=== PATIENT | female | born 1995 | race Caucasian/White ===

== ENCOUNTER 2019-05-26 13:42 | Emergency (ER) | payer BC, SELFPAY ==
--- NOTE | 2019-05-26 13:49 | ED.URI ---
HPI - URI/Sore Throat General Chief Complaint: Upper Respiratory Infection Stated Complaint: cough/congestion Time Seen by Provider: 05/26/19 13:49 Source: patient and RN notes reviewed History of Present Illness HPI Narrative: Patient is a 23-year-old female that presents the urgent care with complaints of congestion and cough. Patient states she has had a chronic dry cough since March and is never followed up for her symptoms. Patient states that she was using Claritin and Zyrtec but does not seem to help. Patient denies any known fever, nausea, vomiting. Patient states that now she is having chest congestion and sometimes intermittent shortness of breath. Denies of any wheezing. No other acute complaints. No acute distress noted. Patient had a plan of care. Related Data Allergies Allergy/AdvReac Type Severity Reaction Status Date / Time No Known Allergies Allergy Verified 05/29/13 17:18 Review of Systems Review of Systems: Narrative: CONSTITUTIONAL: Denies fever, chills, or sweats. EYES: Denies visual changes, redness, or discharge. ENT: Denies rhinorrhea, congestion, sore throat, or otalgia. CARDIOVASCULAR: Denies chest pain, palpitations, or edema. RESPIRATORY: Reports of dry cough with intermittent dyspnea GASTROINTESTINAL: Denies abdominal pain, nausea, vomiting, or diarrhea. GENITOURINARY: Denies dysuria or hematuria. SKIN: Denies rash or itching. MUSCULOSKELETAL: Denies back pain, joint pain, or myalgia. NEUROLOGIC: Denies headache, numbness, or weakness. All other systems reviewed are negative, except as documented in HPI. PMFSH Comments At the time of my signature, I reviewed and agree with the nursing past medical, surgical, social, and family history. There is no relevant family history pertinent to the patient complaint. Exam Narrative: Exam Narrative: GENERAL: This is a well-nourished, well-developed patient, in no apparent distress. HEAD: normocephalic, atraumatic. EYES: PERRL. Sclera clear/white. Vision is grossly intact. EARS: External ears normal, auditory canals clear and without drainage, TMs normal without perforation. Hearing grossly intact. NOSE: External nose normal with no obvious nasal discharge, nares without redness, no rhinorrhea. THROAT: Mucous membranes moist, mild erythema to the posterior oropharynx with mild postnasal drainage NECK: Neck supple CARDIOVASCULAR: Regular rate and rhythm without murmurs, gallops, or rubs. RESPIRATORY: Clear to auscultation. Breath sounds equal bilaterally. No wheezes, rales, or rhonchi. SKIN: warm, intact with no suspicious lesions or rash, good texture and turgor. NEURO: awake, alert, and oriented to person, place and time. There were no obvious focal neurologic abnormalities. EXTREMITIES: No clubbing, cyanosis, or edema. Course Vital Signs Vital signs: Vital Signs Temperature 97.5 F L 05/26/19 13:55 Pulse Rate 81 05/26/19 13:55 Respiratory Rate 16 05/26/19 13:55 Blood Pressure 133/89 05/26/19 13:55 Pulse Oximetry 99 05/26/19 13:55 Temperature 97.5 F L 05/26/19 13:55 Pulse Rate 81 05/26/19 13:59 Respiratory Rate 16 05/26/19 13:59 Blood Pressure 133/89 05/26/19 13:55 Pulse Oximetry 99 05/26/19 13:59 Reviewed MDM - URI/Sore Throat MDM Narrative Medical decision making narrative: Advised the patient to complete steroid regimen as prescribed. Continue taking Claritin in conjunction with Flonase nasal spray while on the steroid and for 2 weeks after. Increase fluids and rest. Use humidifier at night. If you develop any increase in symptoms associated with persistent shortness of breath, wheezing, fever?go to the emergency room. Follow-up with PCP within 2 to 5 days or for worsening symptoms or failure to improve. Differential Diagnosis Differential diagnosis: Likely upper respiratory infection, otitis media, sinusitis, bronchitis, influenza and pharyngitis Critical Care Time Critical Care Time Critical Care Time:
[2019-05-26 13:55] VITALS: BP 133/89; PULSE 81; RESP 16; TEMP 36.4; O2SAT 99
[2019-05-26 13:59] VITALS: PULSE 81; RESP 16; O2SAT 99
== END 2019-05-26 14:25 | disposition home or self-care (01) ==
PROVIDERS: Emergency Provider Nurse Practitioner Family; PCP Internal Medicine
DX: J32.9 Chronic sinusitis, unspecified (principal); M19.90 Unspecified osteoarthritis, unspecified site
CPT/HCPCS: 99203; G0463

== ENCOUNTER 2024-08-28 12:44 | Outpatient (CLI) | payer OTHER, SELFPAY ==
--- OUTSIDE RECORDS SUMMARY | 2024-08-28 14:13 | XMS_ITS | CONTINUITY OF CARE DOCUMENT ---
Author Name ron velasquez Address Unknown Organization [facility] Address [address] [place] [address] [address], [place] [address] Phone [phone] Care Team Providers Care Sign Language Interpreter Name Role Phone Dennis Lomeli DO Unavailable DELGADO HEARN MD Unavailable [phone] INSURANCE PROVIDERS Payer name Policy type / Coverage type Geremias red alliance party ID [employer] insurance [id number]
--- OUTSIDE RECORDS SUMMARY | 2024-08-28 14:13 | XMS_ITS | Clinical Summary ---
Author Organization [facility] Virtual Care Address [address] [place] [phone] Phone Care Team Providers Care Roll Filler Name Role Phone Russell Dimas MD Primary Care Provider [phone] Allergies No known active allergies Medications benzonatate (TESSALON) 200 mg capsuleIndicati ons:Subacute cough Take 1 capsule (200 mg total) by mouth 3 (three) times a day as needed for cough keep tessalon out of reach of children, especially children under the age of 10, due to possible serious risk such as if ingested by children under the age of 10. 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 Gender Identity Not on file Sexual Orientation Not on file Obstetrics History Last Filed Vital Signs Vital Sign Reading Time Taken Comments Blood Pressure 131/88 09/18/2023 9:28 AM CDT Pulse 87 09/18/2023 9:28 AM CDT Temperature 36.6 C (97.9 F) 09/18/2023 9:28 AM CDT Respiratory Rate 20 09/18/2023 9:28 AM CDT Oxygen Saturation 97% 09/18/2023 9:28 AM CDT Inhaled Oxygen Concentration - - Weight 128 kg (282 lb 3.2 oz) 09/18/2023 9:28 AM CDT Height 170.2 cm (5' 7) 09/18/2023 9:28 AM CDT Body Mass Index 44.2 09/18/2023 9:28 AM CDT Plan of Treatment Health Maintenance Due Date Last Done Comments Cervical Cancer Screening 1993 Depression Screening 1993 Hepatitis C Screening 1993 Regular Well Visit/Exam 18-64 09/24/2011 DTaP/Tdap/Td Vaccine (8 - Td or Tdap) 04/01/2023 04/01/2013, 12/13/2006, 08/04/1998, Additional history exists Covid-19 Vaccine ( season) 2023 11/09/2020, 10/22/2020 Influenza Vaccine (Season Ended) 2024 01/27/2020, 12/20/2017, 06/11/2014, Additional history exists Hepatitis B Screening Completed 09/27/1994 , 1993, 1993 Varicella Vaccines Completed 12/13/2006, 12/27/1994 HPV Vaccines Aged Out No longer eligi ble based on patient's age to complete this topic Pneumococcal vaccine <65 Aged Out No longer eligible based on patient's age to complete this topic Insurance Care Teams Roll Filler Relationship Specialty Start Date End Date Russell Dimas MD PCP - General Internal Medicine 06/14/23
--- OUTSIDE RECORDS SUMMARY | 2024-08-28 14:13 | XMS_ITS | Clinical Summary ---
Author Organization [facility] [employer] Address [address] [address] Care Team Providers Care It Business Analyst Name Role Phone Russell Dimas MD Primary Care Provider [phone] Source Comments [facility] [employer],non-owned Affiliates and Associated Physician Practices is amultiple site organization consisting of ambulatory clinics and hospital sitesin [place], [place], [place] and [place]. This disclosure is being madepursuant to the Care Everywhere program and may not contain all information available regarding this patient. Last updated 17.[facility] [employer] Allergies No known active allergies Medications * Be aware that medications may not be up to date on this document. Alwaysverify current medications with the patient. ipratropium (Atrovent) 0.06 % nasal spray [place] 2 (two) sprays into each nostril 3 times daily as needed (allergies) Active diphenhydrAMINE (Benadryl) 25 MG capsule Take 1 (one) capsule by mouth every 4 hours as needed for Itching (allergies) Active Vit-Fe Fumarate-FA ( VITAMINS PO) Take 1 tablet by mouth once daily Active Active Problems Problem Noted Date Diagnosed Date Annual physical exam - [facility] 08/21/2023 Closed boxer's fracture - right hand 03/2013 s/p sx 03/13/2013 Allergies Overview (03/19/2024): Seasonal and perennial - hx SKT and RAST test, no hx allergy shots Rheumatoid arthritis Overview (03/19/2024): Tylenol PRN, no hx other rx Resolved Problems Problem Noted Date Diagnosed Date Resolved Date Annual physical exam 08/21/2023 024 Encounters Date Type Department Care Team Description 08/15/2024 Results Follow-Up [address], [address] [address] Marianne Kessler MD 08/14/2024 Orders Only [address], [address] [address] Marianne Kessler MD Annual physical exam - [facility] from Last 3 Months Immunizations Immunization Administration Dates Next Due DTaP VACCINE IM (6wk-6yrs) 08/04/1998,,03/29/1994,1993,1993 HEP A PEDS 2 DOSE 10/05/2007,12/13/2006 HEP A VACCINE, ADULT 05/01/2012 HEP B VACCINE, PED/ADOL 09/27/1994,1993, HIB-PRP-OMP 3 DOSE 12/27/1994, 5,01/25/1994,1993 INFLUENZA VACCINE, CELL CULT URE, QUADR. (FLUCELVAX QUADRIVALENT; 6MO+), 0.5 ML (CCIIV4) 01/27/2020 INFLUENZA VACCINE, HIGH-DOSE , TRIV. (FLUZONE HIGH-DOSE TRIVALENT; 65Y+) (HD-IIV3) 06/11/2014 INFLUENZA VACCINE, QUADR. (A FLURIA, FLUZONE QUADRIVALENT; 6MO+) (IIV4) 12/20/2017 INFLUENZA VACCINE, QUADR. (F LUZONE; FLULAVAL; FLUARIX; AFLURIA QUADRIVALENT; 6MO+), 0.5 ML (IIV4) 01/11/2023 INFLUENZA VACCINE, TRIV. (FL UZONE; FLULAVAL; FLUARIX; AFLURIA TRIVALENT; 6MO+), 0.5 ML (IIV3) 01/11/2024,02/01/2013 MMR VACCINE 08/04/1998,09/27/1994 POLIO OPV 08/04/1998, 5,01/25/1994,1993 TDAP, HISTORIC VACCINE 04/01/2013,12/13/2006 VARICELLA 12/13/2006,12/27/1994 Family History Medical History Relation Name Comments Diabetes - Type 2 Brother Hypertension Brother Hypertension Father None Known Maternal Grandfather mother is adopted None Known Maternal Grandmother mother is adopted Asthma Mother Bipolar Disorder Mother COPD - Chronic Obstructive P ulmonary Disease Mother Diabetes - Type 2 Mother Hypertension Mother CAD (Coronary Artery Disease) Paternal Grandfather Other - Hematologic Paternal Grandmother Multiple myeloma Anxiety Disorder Sister Depression Sister Relation Name Status Comments Brother Alive Father Alive Maternal Grandfather Maternal Grandmother Mother Alive Paternal Grandfather Paternal Grandmother Sister Alive half-brother Alive Social History Tobacco Use Types Packs/Day Years Used Date Smoking Tobacco: Former Cigarettes 0.5 10 2 2020 Smokeless Tobacco: Never Tobacco Cessation:Counseling Given: Yes Comments:5 pk-yr hx, quit 2020 Comments Unknown Sex and Gender Information Value Date Recorded Sex Assigned at Not on file Legal Sex Female 3:16 PM CDT Gender Identity Not on file Sexual Orientation Not on file Last Filed Vital Signs Vital Sign Reading Time Taken Comments Blood Pressure 112/64 03/19/2024 8:21 AM CORONER'S JUROR Pulse 88 03/19/2024 8:21 AM CORONER'S JUROR Temperature - - Respiratory Rate 16 03/19/2024 8:21 AM CORONER'S JUROR Oxygen Saturation 99% 03/19/2024 8:21 AM CORONER'S JUROR Inhaled Oxygen Concentration - - Weight 118.3 kg (260 lb 12.8 oz) 03/19/2024 8:21 AM CORONER'S JUROR Height 168.3 cm (5' 6.25) 03/19/2024 8:21 AM CS T Body Mass Index 41.78 03/19/2024 8:21 AM CORONER'S JUROR Plan of Treatment Health Maintenance Due Date Last Done Comments HIV SCREENING 2008 HEPATITIS C SCREENING 09/19/2011 DTAP/TDAP/TD VACCINES (8 - Td or Tdap) 04/01/2023 04/01/2013, 12/13/2006, 08/04/1998, Additional history exists COVID-19 VACCINE ( season) 2023 11/09/2020, 10/22/2020 DEPRESSION SCREENING 03/13/2024 PAP SMEAR 12/28/2025 12/28/2022 ZOSTER VACCINE (1 of 2) 09/24/2043 HEPATITIS B VACCINE Completed 09/27/1994, 1993, 1993 HIB VACCINE Completed 12/27/1994, 03/13, 01/25/1994, Additional history exists INFLUENZA VACCINE Completed 01/11/2024, , 01/27/2020, Additional history exists HPV VACCINE Aged Out No longer eligi ble based on patient's age to complete this topic MENINGOCOCCAL (Group B) VACCINE SHARED DECISION-MAKING Aged Out No longer eligible based on patient's age to complete this topic MENINGOCOCCAL GROUPS A/C/Y/W VACCINE Aged Out No longer eligible based on patient's age to complete this topic PNEUMOCOCCAL VACCINE Aged Out No long er eligible based on patient's age to complete this topic Procedures Procedure Name Priority Date/Time Associated Diagnosis Comments QUANTIFERON TB-GOLD Routine 08/14/2024 8 :30 AM CDT Annual physical exam - [facility] URINALYSIS REFLEX TO MICROSCOPIC NO CULTURE Routine 08/14/2024 8:30 AM CDT Annual physical exam [facility] LIPID PROFILE W TCHOL/HDL Routine 08/14/2024 8:30 AM CDT Annual physical exam [facility] CBC W AUTO DIFFERENTIAL Routine 08/14/2024 8:30 AM CDT Annual physical exam [facility] COMPREHENSIVE METABOLIC PANEL Routine 08/14/2024 8:30 AM CDT Annual physical exam [facility] from Last 3 Months Results * (ABNORMAL) LIPID PROFILE W TCHOL/HDL (08/14/2024 8:30 AM CDT) Cholesterol 244(H) 100 - 199 mg/dL [facility] ACCOUNT BILL Triglycerides 145 0 - 149 mg/dL [facility] ACCOUNT BILL HDL Cholesterol 93 >39 mg/dL [facility] ACCOUNT BILL VLDL Calculated 25 5 - 40 mg/dL [facility] ACCOUNT BILL LDL Calculated 126(H) 0 - 99 mg/dL [facility] ACCOUNT BILL Cholesterol/HDL Ratio 2.6 0.0 - 4.4 ratio [facility] ACCOUNT BILL Comment: T. Chol/HDL Ratio Men Women 1/2 Avg.Risk 3.4 3.3 Avg.Risk 5.0 4.4 2X Avg.Risk 9.6 7.1 3X Avg.Risk 23.4 11.0 Blood BLOOD SPECIMEN / Unknown 08/14/2024 8:30 AM CDT 08/14/2024 Narrative [facility] ACCOUNT BILL - 08/15/2024 7:09 AM CDT Performed at: [address] [id number] [employer] Equipment Mechanic: Nikolas Srinivasan PhD, Phone: [phone] Marianne Kessler MD LAB - CHEMISTRY ORDERABLES Fin al Result [facility] ACCOUNT BILL [address] [place] [address] * (ABNORMAL) URINALYSIS REFLEX TO MICROSCOPIC NO CULTURE (08/14/2024 8:30 AM CDT) Specific [place] UA 1.022 1.005 - 1.030 [facility] ACCOUNT BILL pH UA 6.5 5.0 - 7.5 [facility] ACCOUNT BILL Color UA Yellow Yellow [facility] ACCOUNT BILL Appearance Cloudy(A) Clear [facility] ACCOUNT BILL Leukocyte UA 2+(A) Negative [facility] ACCOUNT BILL Protein UA Trace Negative/Tra ce [facility] ACCOUNT BILL Glucose UA Negative Negative [facility] ACCOUNT BILL Ketone UA Negative Negative [facility] ACCOUNT BILL Occult Blood Urine Negative Negative [facility] ACCOUNT BILL Bilirubin UA Negative Negative [facility] ACCOUNT BILL Urobilinogen 0.2 0.2 - 1.0 mg/dL [facility] ACCOUNT BILL Nitrite UA Negative Negative [facility] ACCOUNT BILL Microscopic Examination Urine See below: [facility] ACCOUNT BILL Comment: Microscopic was indicated and was performed. Performed at: [address] [id number] [employer] Mechanic: Nikolas Srinivasan PhD, Phone: [phone] WBC UA 11-30(A) 0 - 5 /hpf [facility] ACCOUNT BILL RBC UA 0-2 0 - 2 /hpf [facility] ACCOUNT BILL Epithelial Cells (non renal) >10(A) 0 - 10 /hpf [facility] ACCOUNT BILL Casts ua None seen None seen /lpf [facility] ACCOUNT BILL Bacteria UA Many(A) None seen/Few [facility] ACCOUNT BILL Urine URINE SPECIMEN OBTAINED BY CLEAN CATCH PROCEDURE / Unknown 08/14/2024 8:30 AM CDT 08/14/2024 Narrative [facility] ACCOUNT BILL - 08/15/2024 7:09 AM CDT Performed at: [address] [place] [id number] [employer] Mechanic: Nikolas Srinivasan PhD, Phone: [phone] us Marianne Kessler MD LAB - URINALYSIS ORDERABLES Fi nal Result [facility] ACCOUNT BILL [address] [place] [address] * QUANTIFERON TB-GOLD (08/14/2024 8:30 AM CDT) [facility] QuantiFERON Incubation Incubation performed. [facility] ACCOUNT BILL QuantiFERON-TB Gold Plus Negative Negative [facility] ACCOUNT BILL Comment: No response to M tuberculosis antigens detected. Infection with M tuberculosis is unlikely, but high risk individuals should be considered for additional testing (ATS/IDSA/CDC Clinical Practice Guidelines, 2017). The reference range is an Antigen minus Nil result of <0.35 IU/mL. Chemiluminescence immunoassay methodology Performed at: [address] [place] [id number] [employer] Mechanic: Nikolas Srinivasan PhD, Phone: [phone] QuantiFERON Criteria Comment [facility] ACCOUNT BILL Comment: QuantiFERON-TB Gold Plus is a qualitative indirect test for M tuberculosis infection (including disease) and is intended for use in conjunction with risk assessment, radiography, and other medical and diagnostic evaluations. The QuantiFERON-TB Gold Plus result is determined by subtracting the Nil value from either TB antigen (Ag) value. The Mitogen tube serves as a control for the test. QuantiFERON TB1 Ag Value 0.05 IU/mL [facility] ACCOUNT BILL QuantiFERON TB2 Ag Value 0.03 IU/mL [facility] ACCOUNT BILL QuantiFERON Nil Value 0.03 IU/mL [facility] ACCOUNT BILL QuantiFERON Mitogen Value >10.00 IU/mL [facility] ACCOUNT BILL Blood BLOOD SPECIMEN / Unknown 08/14/2024 8:30 AM CDT 08/14/2024 Narrative [facility] ACCOUNT BILL - 08/16/2024 7:09 PM CDT Performed at: 01 - [facility] [id number] [employer] Mechanic: Nikolas Srinivasan PhD, Phone: [phone] us Marianne Kessler MD LAB - CHEMISTRY ORDERABLES Fin al Result [facility] ACCOUNT BILL [address] [place] [address] * (ABNORMAL) CBC WITH DIFFERENTIAL (08/14/2024 8:30 AM CDT) WBC 10.9(H) 3.4 - 10.8 x10E3/uL [facility] ACCOUNT BILL RBC 4.29 3.77 - 5.28 x10E6/uL [facility] ACCOUNT BILL Hemoglobin 12.4 11.1 - 15.9 g/dL [facility] ACCOUNT BILL Hematocrit 37.8 34.0 - 46.6 % [facility] ACCOUNT BILL MCV 88 79 - 97 fL [facility] ACCOUNT BILL MCH 28.9 26.6 - 33.0 pg [facility] ACCOUNT BILL MCHC 32.8 31.5 - 35.7 g/dL [facility] ACCOUNT BILL RDW 12.4 11.7 - 15.4 % [facility] ACCOUNT BILL Platelet Count 230 150 - 450 x10E3/uL [facility] ACCOUNT BILL Granulocytes % 74 Not Estab. % [facility] ACCOUNT BILL Lymphocytes % 18 Not Estab. % [facility] ACCOUNT BILL Monocytes % 6 Not Estab. % [facility] ACCOUNT BILL Eosinophils % 2 Not Estab. % [facility] ACCOUNT BILL Basophils % 0 Not Estab. % [facility] ACCOUNT BILL Granulocytes Absolute 8.0(H) 1.4 - 7.0 x10E3/uL [facility] ACCOUNT BILL Lymphocytes Absolute 1.9 0.7 - 3.1 x10E3/uL [facility] ACCOUNT BILL Monocytes Absolute 0.7 0.1 - 0.9 x10E3/uL [facility] ACCOUNT BILL Eosinophils Absolute 0.3 0.0 - 0.4 x10E3/uL [facility] ACCOUNT BILL Basophils Absolute 0.0 0.0 - 0.2 x10E3/uL [facility] ACCOUNT BILL Immature Granulocytes 0 Not Estab. % [facility] ACCOUNT BILL Immature Granulocytes Absolute 0.0 0.0 - 0.1 x10E3/uL [facility] ACCOUNT BILL Blood BLOOD SPECIMEN / Unknown 08/14/2024 8:30 AM CDT 08/14/2024 Narrative [facility] ACCOUNT BILL - 08/15/2024 12:07 AM CDT Performed at: [address] [id number] [employer] Mechanic: Nikolas Srinivasan PhD, Phone: [phone] us Marianne Kessler MD LAB - HEMATOLOGY ORDERABLES Fi nal Result [facility] ACCOUNT BILL [address] [place] [address] * (ABNORMAL) COMPREHENSIVE METABOLIC PANEL (08/14/2024 8:30 AM CDT) [facility] Glucose 99 70 - 99 mg/dL [facility] ACCOUNT BILL BUN 6 6 - 20 mg/dL [facility] ACCOUNT BILL Creatinine 0.51(L) 0.57 - 1.00 mg/dL [facility] ACCOUNT BILL eGFR by CKD-EPI 129 >59 mL/min/1.7 3 [facility] ACCOUNT BILL BUN/Creatinine Ratio 12 9 - 23 [facility] ACCOUNT BILL Sodium 137 134 - 144 mmol/L [facility] ACCOUNT BILL Potassium 4.1 3.5 - 5.2 mmol/L [facility] ACCOUNT BILL Chloride 101 96 - 106 mmol/L [facility] ACCOUNT BILL CO2 19(L) 20 - 29 mmol/L [facility] ACCOUNT BILL Calcium 8.6(L) 8.7 - 10.2 mg/dL [facility] ACCOUNT BILL Protein Total 5.8(L) 6.0 - 8.5 g/dL [facility] ACCOUNT BILL Albumin 3.5(L) 4.0 - 5.0 g/dL [facility] ACCOUNT BILL Globulin Total 2.3 1.5 - 4.5 g/dL [facility] ACCOUNT BILL Bilirubin Total <0.2 0.0 - 1.2 mg/dL [facility] ACCOUNT BILL Alkaline Phosphatase 83 44 - 121 IU/L [facility] ACCOUNT BILL AST 14 0 - 40 IU/L [facility] ACCOUNT BILL ALT 7 0 - 32 IU/L [facility] ACCOUNT BILL Blood BLOOD SPECIMEN / Unknown 08/14/2024 8:30 AM CDT 08/14/2024 Narrative [facility] ACCOUNT BILL - 08/15/2024 7:09 AM CDT Performed at: 01 - [facility] [address] [id number] [employer] Mechanic: Nikolas Srinivasan PhD, Phone: [phone] us Marianne Kessler MD LAB - CHEMISTRY ORDERABLES Fin al Result Performing Organization Address City/State/[facility] Co de Phone Number [facility] ACCOUNT BILL [address] [place] [address] from Last 3 Months Insurance HEALTH CARE Member Subscriber Plan / Payer (Ef fective 2018-Present) Name:Angelic Caruso Relation to Subscriber:Self Name:Angelic Caruso Payer ID:[id number] (NAIC) Type:PPO Address: [address] CARE Care Teams It Business Analyst Relationship Specialty Start Date End Date Russell Dimas MD [address] [place] [address] PCP - General Internal Medicine 03/19/24
--- OUTSIDE RECORDS SUMMARY | 2024-08-28 14:13 | XMS_ITS | Referral Summary ---
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
[2024-08-31] MEDS: RHO(D) IMMUNE GLOBULIN 300 MCG/2 ML SYRINGE IM (12:05)
== END 2024-08-28 12:45 | disposition home or self-care (01) ==
LOC: ANHLAB 12:51
PROVIDERS: PCP Internal Medicine; Visit Provider Obstetrics & Gynecology
DX: Z29.13 Encounter for prophylactic Rho(D) immune globulin (principal)
CPT/HCPCS: 36415; 85461; 86850; 86900; 86901; 90384; 96372; J2790